=== PATIENT | female | born 1975 | race Caucasian/White ===

== ENCOUNTER 2021-02-11 15:42 | Emergency (ER) | payer BC ==
[2021-02-11] MEDS ORDERED: CASIRIVIMAB/IMDEVIMAB 10 ML in SODIUM CHLORIDE 100 ML IVPB ONE (16:42)
[2021-02-11 16:45] VITALS: BMI 30.1
[2021-02-11 20:12] VITALS: BP 122/80; PULSE 83; TEMP 98.3
== END 2021-02-11 20:11 | disposition home or self-care (01) ==
LOC: JER 15:42
DX: U07.1 COVID-19 (principal)
CPT/HCPCS: 71045-TC-FY; 99284-25; M0240; Q0240